=== PATIENT | male | born 1955 | race Caucasian/White ===

== ENCOUNTER 2016-12-17 14:50 | Outpatient (CLI) | payer BC ==
--- NOTE | 2016-12-17 15:53 | Diagnostic Imaging Report ---
Indication: Dyspnea Comparison: None 2 views of the chest obtained. Findings: Cardiomediastinal silhouette and pulmonary vascularity are within normal limits for age. The diaphragmatic contour is smooth and costophrenic angles are sharp. Lung volumes are low. No pleural effusions are identified. The bones are unremarkable. Impression: No acute disease
== END 2016-12-17 16:50 | disposition home or self-care (01) ==
LOC: RAD 14:50
DX: R05 Cough (principal); R06.00 Dyspnea, unspecified; J45.909 Unspecified asthma, uncomplicated
CPT/HCPCS: 71020